=== PATIENT | male | born 1995 | race African-American/Black ===

== ENCOUNTER 2017-10-11 16:36 | Inpatient (IN) | payer MEDICAID ==
[~2017-10-11] VITALS: Ht 188 cm; Wt 89.9 kg
[~2017-10-11 16:36] MED LIST: DIVA500T35 PO; QUET300T2 PO
[2017-10-11] MEDS ORDERED: OLAN10TA3 PO (16:55)
[2017-10-11] MEDS ORDERED: PROP10TA73 PO (16:55)
[2017-10-11] MEDS ORDERED: SERT50TA12 PO (16:55)
[2017-10-11] MEDS ORDERED: HALOPERIDOL 5 MG TABLET PO ONE (17:15)
[2017-10-11] MEDS ORDERED: LORazepam 2 MG TABLET PO ONE (17:15)
[2017-10-11 17:16] LABS: BASOPHILS % (AUTO) 0.7 % (0.0-2.0); EOSINOPHILS % (AUTO) 0.7 % (1.0-6.0); HEMATOCRIT 46.4 % (41-53); HEMOGLOBIN 15.2 g/dL (13.5-17.5); LYMPHOCYTES # (AUTO) 1.8 K/uL (1.0-4.8); LYMPHOCYTES % (AUTO) 38.2 % (22.0-44.0); MEAN CORPUSCULAR HEMOGLOBIN 28.6 pg (26.0-34.0); MEAN CORPUSCULAR HGB CONC 32.7 G/dL (31.0-37.0); MEAN CORPUSCULAR VOLUME 87 fL (80-100); MONOCYTES # (AUTO) 0.4 K/uL (0.1-1.0); MONOCYTES % (AUTO) 8.7 % (2.0-9.0); NEUTROPHILS # (AUTO) 2.4 K/uL (1.8-7.7); NEUTROPHILS % (AUTO) 51.7 % (40.0-70.0); PLATELET COUNT (AUTO) 190 K/uL (150-450); RED BLOOD CELL COUNT(AUTO) 5.32 MIL/uL (4.50-5.90); RED CELL DISTRIBUTION WIDTH 13.9 % (11.5-14.5)
[2017-10-11 17:56] LABS: ANION GAP 6 mmol/L (8-16); CALCIUM, TOTAL 9.4 mg/dL (8.8-10.5); CARBON DIOXIDE 31 mmol/L (22-29); CHLORIDE 104 mmol/L (98-107); CREATININE 1.07 mg/dL (0.60-1.30); GLOMERULAR FILTR. RATE CALC > 60 mL/min (>60); GLUCOSE,RANDOM 92 mg/dL (70-110); POTASSIUM 4.5 mmol/L (3.5-5.1); SODIUM SERUM 141 mmol/L (136-145); UREA NITROGEN, BLOOD 14 mg/dL (7-18)
[2017-10-11 17:58] LABS: AMPHET/METH SCREEN,URINE NEGATIVE (NEGATIVE); BARBITURATE SCREEN, URINE NEGATIVE (NEGATIVE); BENZODIAZEPINES SCREEN,URINE NEGATIVE (NEGATIVE); CANNABINOID SCREEN,URINE NEGATIVE (NEGATIVE); COCAINE SCREEN,URINE NEGATIVE (NEGATIVE); METHADONE SCREEN, URINE NEGATIVE (NEGATIVE); OPIATE SCREEN,URINE NEGATIVE (NEGATIVE); PHENCYCLIDINE SCREEN,URINE NEGATIVE (NEGATIVE)
[2017-10-11 18:01] LABS: ALANINE AMINOTRANSFERASE 16 U/L (12-78); ALBUMIN 3.8 g/dL (3.4-5.0); ALKALINE PHOSPHATASE 72 U/L (46-116); ASPARTATE AMINOTRANSFERASE 26 U/L (15-37); BILIRUBIN,TOTAL 0.2 mg/dL (0.1-1.0); TOTAL PROTEIN, SERUM 7.9 g/dL (6.4-8.2)
[2017-10-11 21:06] LABS: APPEARANCE,URINE CLEAR (CLEAR); BILIRUBIN,URINE NEGATIVE (NEGATIVE); GLUCOSE, URINE (UA) NEGATIVE (NEGATIVE); KETONES,URINE NEGATIVE (NEGATIVE); LEUKOCYTE ESTERASE ,URINE NEGATIVE (NEGATIVE); NITRATE,URINE NEGATIVE (NEGATIVE); OCCULT BLOOD,URINE NEGATIVE (NEGATIVE); PROTEIN,URINE POS 1+ (NEGATIVE); UROBILINOGEN,URINE 0.2 mg/dL (<=1.0)
[2017-10-12 04:56] LABS: BASOPHILS % (AUTO) 0.4 % (0.0-2.0); EOSINOPHILS % (AUTO) 1.5 % (1.0-6.0); HEMATOCRIT 44.2 % (41-53); HEMOGLOBIN 14.8 g/dL (13.5-17.5); LYMPHOCYTES # (AUTO) 2.2 K/uL (1.0-4.8); LYMPHOCYTES % (AUTO) 44.9 % (22.0-44.0); MEAN CORPUSCULAR HEMOGLOBIN 29.1 pg (26.0-34.0); MEAN CORPUSCULAR HGB CONC 33.5 G/dL (31.0-37.0); MEAN CORPUSCULAR VOLUME 87 fL (80-100); MONOCYTES # (AUTO) 0.5 K/uL (0.1-1.0); MONOCYTES % (AUTO) 9.9 % (2.0-9.0); NEUTROPHILS # (AUTO) 2.2 K/uL (1.8-7.7); NEUTROPHILS % (AUTO) 43.3 % (40.0-70.0); PLATELET COUNT (AUTO) 178 K/uL (150-450); RED BLOOD CELL COUNT(AUTO) 5.07 MIL/uL (4.50-5.90); RED CELL DISTRIBUTION WIDTH 13.9 % (11.5-14.5)
[2017-10-12 05:20] LABS: ALANINE AMINOTRANSFERASE 23 U/L (12-78); ALBUMIN 3.4 g/dL (3.4-5.0); ALKALINE PHOSPHATASE 64 U/L (46-116); ANION GAP 4 mmol/L (8-16); ASPARTATE AMINOTRANSFERASE 26 U/L (15-37); BILIRUBIN,TOTAL 0.1 mg/dL (0.1-1.0); CALCIUM, TOTAL 8.7 mg/dL (8.8-10.5); CARBON DIOXIDE 32 mmol/L (22-29); CHLORIDE 103 mmol/L (98-107); CREATININE 0.97 mg/dL (0.60-1.30); FREE T4 (FREE THYROXINE) 0.75 ng/dL (0.76-1.46); GLOMERULAR FILTR. RATE CALC > 60 mL/min (>60); GLUCOSE,RANDOM 106 mg/dL (70-110); POTASSIUM 3.7 mmol/L (3.5-5.1); SODIUM SERUM 139 mmol/L (136-145); THYROID STIMULATING HORMONE 4.15 uIU/mL (0.36-3.74); TOTAL PROTEIN, SERUM 6.8 g/dL (6.4-8.2); UREA NITROGEN, BLOOD 12 mg/dL (7-18)
[2017-10-12 08:10] VITALS: BP 111/69
[2017-10-12] MEDS ORDERED: CloNIDine HCL 0.1 MG TABLET PO PRN (09:00)
[2017-10-12] MEDS ORDERED: IBUPROFEN 600 MG TABLET PO PRN (09:00)
[2017-10-12] MEDS ORDERED: MAG HYDROX/AL HYDROX/SIMETH ES 30 ML SUSPENSION UDCUP PO PRN (09:00)
[2017-10-12] MEDS ORDERED: BENZOCAINE/MENTHOL LOZENGE MM PRN (09:00)
[2017-10-12] MEDS ORDERED: ACETAMINOPHEN 325 MG TABLET PO PRN (09:00)
[2017-10-12] MEDS ORDERED: ALBUTEROL SULFATE HFA 90 MCG/PUFF 8 GM INHALER IH PRN (09:00)
[2017-10-12] MEDS ORDERED: BACITRACIN 28.4 GM OINTMENT TP PRN (09:00)
[2017-10-12] MEDS ORDERED: LOPERAMIDE HCL 2 MG CAPSULE PO PRN (09:00)
[2017-10-12] MEDS ORDERED: PETROLATUM,WHITE 71 GM JELLY TP PRN (09:00)
[2017-10-12] MEDS ORDERED: MAGNESIUM HYDROXIDE SUSPENSION 30 ML UDCUP PO PRN (09:00)
[2017-10-12] MEDS ORDERED: ONDANSETRON HCL 4 MG TABLET PO PRN (09:00)
[2017-10-12] MEDS ORDERED: BENZOCAINE/MENTHOL LOZENGE [8 LOZENGES/PACKET] MM PRN (10:47)
[2017-10-12] MEDS: PROPRANOLOL HCL 10 MG TABLET PO SCH (10:48)
[2017-10-12] MEDS: SERTRALINE HCL 50 MG TABLET PO SCH (10:48)
[2017-10-12] MEDS: OLANZapine 10 MG TABLET PO SCH (10:49)
[2017-10-12] MEDS: DIVALPROEX SODIUM 500 MG DR TABLET PO SCH (12:39)
[2017-10-12] MEDS: QUEtiapine FUMARATE 300 MG TABLET PO SCH (20:15)
[2017-10-12 20:25] VITALS: BP 134/93
[2017-10-13 05:39] VITALS: BP 128/86
[2017-10-13 07:46] LABS: CHOL/HDL RATIO 3.4 (4.2-7.3); THYROID STIMULATING HORMONE 3.85 uIU/mL (0.36-3.74)
[2017-10-13 08:37] VITALS: BP 134/85
[2017-10-13] MEDS: DIVALPROEX SODIUM 500 MG DR TABLET PO SCH ×2 (08:54→17:29)
[2017-10-13] MEDS: PROPRANOLOL HCL 10 MG TABLET PO SCH ×2 (08:54→17:29)
[2017-10-13] MEDS: SERTRALINE HCL 50 MG TABLET PO SCH (08:54)
[2017-10-13] MEDS: OLANZapine 10 MG TABLET PO SCH ×2 (08:55→17:29)
[2017-10-13 16:41] VITALS: BP 124/86
[2017-10-13] MEDS: QUEtiapine FUMARATE 300 MG TABLET PO SCH (20:36)
[2017-10-13] MEDS: HALOPERIDOL 5 MG TABLET PO PRN (20:50)
[2017-10-13] MEDS: LORazepam 2 MG TABLET PO PRN (20:50)
[2017-10-13] MEDS ORDERED: HALOPERIDOL LACTATE 5 MG/ML VIAL IM ONE (21:45)
[2017-10-13] MEDS ORDERED: LORazepam 2 MG/ML VIAL IM ONE (21:45)
[2017-10-13] MEDS ORDERED: DiphenhydrAMINE HCL 50 MG/ML VIAL IM ONE (21:45)
[2017-10-13] MEDS ORDERED: HALOPERIDOL LACTATE 5 MG/ML VIAL ONE (21:46)
[2017-10-13] MEDS ORDERED: LORazepam 2 MG/ML VIAL ONE (21:46)
[2017-10-13] MEDS ORDERED: DiphenhydrAMINE HCL 50 MG/ML VIAL ONE (21:46)
[2017-10-14] MEDS: LEVOTHYROXINE SODIUM 25 MCG TABLET PO SCH (07:06)
[2017-10-14 09:37] VITALS: BP 130/100
[2017-10-14] MEDS: PROPRANOLOL HCL 10 MG TABLET PO SCH ×2 (10:38→17:04)
[2017-10-14] MEDS: DIVALPROEX SODIUM 500 MG DR TABLET PO SCH ×2 (10:39→17:04)
[2017-10-14] MEDS: SERTRALINE HCL 50 MG TABLET PO SCH (10:39)
[2017-10-14] MEDS: OLANZapine 10 MG TABLET PO SCH ×2 (10:39→17:04)
[2017-10-14] MEDS: CHOLECALCIFEROL (VIT D3) 1,000 UNITS TABLET PO SCH (10:40)
[2017-10-14 19:18] VITALS: BP 141/89
[2017-10-14] MEDS: LORazepam 2 MG TABLET PO PRN (20:14)
[2017-10-14 20:15] VITALS: BP 128/93
[2017-10-14] MEDS: QUEtiapine FUMARATE 300 MG TABLET PO SCH (21:08)
[2017-10-15] VITALS (7 sets, daily range): BP systolic 132–155; BP diastolic 82–96
[2017-10-15] MEDS: LEVOTHYROXINE SODIUM 25 MCG TABLET PO SCH (06:33)
[2017-10-15] MEDS: DIVALPROEX SODIUM 500 MG DR TABLET PO SCH ×2 (08:05→17:01)
[2017-10-15] MEDS: PROPRANOLOL HCL 10 MG TABLET PO SCH ×2 (08:06→17:01)
[2017-10-15] MEDS: LORazepam 2 MG TABLET PO PRN ×2 (08:06→18:24)
[2017-10-15] MEDS: SERTRALINE HCL 50 MG TABLET PO SCH (08:06)
[2017-10-15] MEDS: CHOLECALCIFEROL (VIT D3) 1,000 UNITS TABLET PO SCH (08:06)
[2017-10-15] MEDS: HALOPERIDOL 5 MG TABLET PO PRN (08:06)
[2017-10-15] MEDS: OLANZapine 10 MG TABLET PO SCH ×2 (08:07→17:01)
[2017-10-15 18:23] LABS: GLUCOMETER DEV NAME(LOC) 3EC; GLUCOSE,POINT OF CARE 114 MG/DL (70-110)
[2017-10-15] MEDS: QUEtiapine FUMARATE 300 MG TABLET PO SCH (20:44)
[2017-10-16 06:42] VITALS: BP 108/67
[2017-10-16] MEDS: LEVOTHYROXINE SODIUM 25 MCG TABLET PO SCH (06:54)
[2017-10-16 08:00] VITALS: BP 141/78
[2017-10-16] MEDS: DIVALPROEX SODIUM 500 MG DR TABLET PO SCH ×2 (09:47→18:00)
[2017-10-16] MEDS: PROPRANOLOL HCL 10 MG TABLET PO SCH ×2 (09:47→17:59)
[2017-10-16] MEDS: OLANZapine 10 MG TABLET PO SCH ×2 (09:48→18:00)
[2017-10-16] MEDS: SERTRALINE HCL 50 MG TABLET PO SCH (09:48)
[2017-10-16] MEDS: CHOLECALCIFEROL (VIT D3) 1,000 UNITS TABLET PO SCH (09:48)
[2017-10-16] MEDS: LORazepam 2 MG TABLET PO PRN (12:06)
[2017-10-16] MEDS: HALOPERIDOL 5 MG TABLET PO PRN (12:06)
[2017-10-16 18:02] VITALS: BP 120/85
[2017-10-16] MEDS: QUEtiapine FUMARATE 300 MG TABLET PO SCH (20:19)
[2017-10-17] MEDS: LEVOTHYROXINE SODIUM 25 MCG TABLET PO SCH (06:48)
[2017-10-17] MEDS: LORazepam 2 MG TABLET PO PRN ×2 (08:00→16:25)
[2017-10-17] MEDS: DIVALPROEX SODIUM 500 MG DR TABLET PO SCH ×2 (08:00→16:25)
[2017-10-17] MEDS: HALOPERIDOL 5 MG TABLET PO PRN (08:00)
[2017-10-17] MEDS: CHOLECALCIFEROL (VIT D3) 1,000 UNITS TABLET PO SCH (08:00)
[2017-10-17] MEDS: SERTRALINE HCL 50 MG TABLET PO SCH (08:01)
[2017-10-17] MEDS: OLANZapine 10 MG TABLET PO SCH ×2 (08:01→16:26)
[2017-10-17] MEDS: PROPRANOLOL HCL 10 MG TABLET PO SCH ×2 (08:01→16:25)
[2017-10-17] MEDS: QUEtiapine FUMARATE 300 MG TABLET PO SCH (21:30)
[2017-10-18 06:44] VITALS: BP 110/72
[2017-10-18] MEDS: LEVOTHYROXINE SODIUM 25 MCG TABLET PO SCH (06:58)
[2017-10-18 08:00] VITALS: BP 137/97
[2017-10-18] MEDS: SERTRALINE HCL 50 MG TABLET PO SCH (08:34)
[2017-10-18] MEDS: LORazepam 2 MG TABLET PO PRN (08:34)
[2017-10-18] MEDS: CHOLECALCIFEROL (VIT D3) 1,000 UNITS TABLET PO SCH (08:34)
[2017-10-18] MEDS: PROPRANOLOL HCL 10 MG TABLET PO SCH ×2 (08:34→16:40)
[2017-10-18] MEDS: HALOPERIDOL 5 MG TABLET PO PRN (08:34)
[2017-10-18] MEDS: DIVALPROEX SODIUM 500 MG DR TABLET PO SCH ×2 (08:34→16:40)
[2017-10-18] MEDS: OLANZapine 10 MG TABLET PO SCH ×2 (08:34→16:40)
[2017-10-18 17:29] VITALS: BP 129/86
[2017-10-18] MEDS: QUEtiapine FUMARATE 300 MG TABLET PO SCH (20:43)
[2017-10-19] MEDS: LEVOTHYROXINE SODIUM 25 MCG TABLET PO SCH (07:00)
[2017-10-19 08:05] VITALS: BP 134/94
[2017-10-19] MEDS: SERTRALINE HCL 50 MG TABLET PO SCH (10:16)
[2017-10-19] MEDS: LORazepam 2 MG TABLET PO PRN (10:16)
[2017-10-19] MEDS: HALOPERIDOL 5 MG TABLET PO PRN (10:16)
[2017-10-19] MEDS: OLANZapine 10 MG TABLET PO SCH ×2 (10:16→17:15)
[2017-10-19] MEDS: PROPRANOLOL HCL 10 MG TABLET PO SCH ×2 (10:16→17:15)
[2017-10-19] MEDS: DIVALPROEX SODIUM 500 MG DR TABLET PO SCH ×2 (10:16→17:15)
[2017-10-19] MEDS: CHOLECALCIFEROL (VIT D3) 1,000 UNITS TABLET PO SCH (10:16)
[2017-10-19 16:00] VITALS: BP 126/74
[2017-10-19] MEDS: QUEtiapine FUMARATE 300 MG TABLET PO SCH (20:43)
[2017-10-20] MEDS: LEVOTHYROXINE SODIUM 25 MCG TABLET PO SCH (06:51)
[2017-10-20 08:11] VITALS: BP 136/85
[2017-10-20] MEDS: LORazepam 2 MG TABLET PO PRN (09:01)
[2017-10-20] MEDS: SERTRALINE HCL 50 MG TABLET PO SCH (09:01)
[2017-10-20] MEDS: OLANZapine 10 MG TABLET PO SCH ×2 (09:01→17:51)
[2017-10-20] MEDS: CHOLECALCIFEROL (VIT D3) 1,000 UNITS TABLET PO SCH (09:01)
[2017-10-20] MEDS: DIVALPROEX SODIUM 500 MG DR TABLET PO SCH ×2 (09:01→17:51)
[2017-10-20] MEDS: HALOPERIDOL 5 MG TABLET PO PRN (09:02)
[2017-10-20] MEDS: PROPRANOLOL HCL 10 MG TABLET PO SCH ×2 (09:02→17:51)
[2017-10-20] MEDS: QUEtiapine FUMARATE 300 MG TABLET PO SCH (20:13)
[2017-10-20 20:39] VITALS: BP 132/80
[2017-10-21] MEDS: LEVOTHYROXINE SODIUM 25 MCG TABLET PO SCH (06:57)
[2017-10-21 08:10] VITALS: BP 125/95
[2017-10-21] MEDS: PROPRANOLOL HCL 10 MG TABLET PO SCH ×2 (08:17→16:55)
[2017-10-21] MEDS: CHOLECALCIFEROL (VIT D3) 1,000 UNITS TABLET PO SCH (08:17)
[2017-10-21] MEDS: SERTRALINE HCL 50 MG TABLET PO SCH (08:17)
[2017-10-21] MEDS: DIVALPROEX SODIUM 500 MG DR TABLET PO SCH ×2 (08:17→16:56)
[2017-10-21] MEDS: OLANZapine 10 MG TABLET PO SCH ×2 (08:18→16:56)
[2017-10-21] MEDS: HALOPERIDOL 5 MG TABLET PO PRN (12:25)
[2017-10-21] MEDS: LORazepam 2 MG TABLET PO PRN (12:25)
[2017-10-21] MEDS ORDERED: NICOTINE 14 MG/24 HOUR PATCH TD ONE (15:15)
[2017-10-21] MEDS: QUEtiapine FUMARATE 300 MG TABLET PO SCH (20:24)
[2017-10-21 21:57] VITALS: BP 114/89
[2017-10-22] MEDS: LEVOTHYROXINE SODIUM 25 MCG TABLET PO SCH (06:38)
[2017-10-22 09:00] VITALS: BP 150/91
[2017-10-22] MEDS: SERTRALINE HCL 50 MG TABLET PO SCH (09:04)
[2017-10-22] MEDS: PROPRANOLOL HCL 10 MG TABLET PO SCH ×2 (09:04→16:20)
[2017-10-22] MEDS: DIVALPROEX SODIUM 500 MG DR TABLET PO SCH ×2 (09:04→16:20)
[2017-10-22] MEDS: CHOLECALCIFEROL (VIT D3) 1,000 UNITS TABLET PO SCH (09:04)
[2017-10-22] MEDS: OLANZapine 10 MG TABLET PO SCH ×2 (09:04→16:20)
[2017-10-22] MEDS: NICOTINE 21 MG/24 HOUR PATCH TD SCH (09:05)
[2017-10-22 16:00] VITALS: BP 124/76
[2017-10-22] MEDS: QUEtiapine FUMARATE 300 MG TABLET PO SCH (20:18)
[2017-10-23] MEDS: LEVOTHYROXINE SODIUM 25 MCG TABLET PO SCH (06:57)
[2017-10-23] MEDS: PROPRANOLOL HCL 10 MG TABLET PO SCH ×2 (09:10→17:19)
[2017-10-23] MEDS: DIVALPROEX SODIUM 500 MG DR TABLET PO SCH ×2 (09:11→17:19)
[2017-10-23] MEDS: CHOLECALCIFEROL (VIT D3) 1,000 UNITS TABLET PO SCH (09:11)
[2017-10-23] MEDS: SERTRALINE HCL 50 MG TABLET PO SCH (09:11)
[2017-10-23] MEDS: NICOTINE 21 MG/24 HOUR PATCH TD SCH (09:12)
[2017-10-23] MEDS: OLANZapine 10 MG TABLET PO SCH ×2 (09:14→17:19)
[2017-10-23 10:59] VITALS: BP 132/77
[2017-10-23 17:10] VITALS: BP 122/71
[2017-10-23] MEDS: QUEtiapine FUMARATE 300 MG TABLET PO SCH (20:07)
[2017-10-24] MEDS: LORazepam 2 MG TABLET PO PRN ×3 (02:31→16:49)
[2017-10-24] MEDS: ZOLPIDEM TARTRATE 10 MG TABLET PO PRN (02:31)
[2017-10-24] MEDS: LEVOTHYROXINE SODIUM 25 MCG TABLET PO SCH (07:00)
[2017-10-24 08:42] VITALS: BP 127/72
[2017-10-24] MEDS: OLANZapine 10 MG TABLET PO SCH ×2 (10:40→16:20)
[2017-10-24] MEDS: DIVALPROEX SODIUM 500 MG DR TABLET PO SCH ×2 (10:40→16:19)
[2017-10-24] MEDS: CHOLECALCIFEROL (VIT D3) 1,000 UNITS TABLET PO SCH (10:40)
[2017-10-24] MEDS: SERTRALINE HCL 50 MG TABLET PO SCH (10:40)
[2017-10-24] MEDS: PROPRANOLOL HCL 10 MG TABLET PO SCH ×2 (10:40→16:20)
[2017-10-24] MEDS: NICOTINE 21 MG/24 HOUR PATCH TD SCH (10:41)
[2017-10-24] MEDS: HALOPERIDOL 5 MG TABLET PO PRN ×2 (12:05→16:49)
[2017-10-24 16:00] VITALS: BP 150/92
[2017-10-24] MEDS: QUEtiapine FUMARATE 300 MG TABLET PO SCH (20:14)
[2017-10-25] MEDS: LEVOTHYROXINE SODIUM 25 MCG TABLET PO SCH (06:53)
[2017-10-25 08:12] VITALS: BP 132/94
[2017-10-25] MEDS: DIVALPROEX SODIUM 500 MG DR TABLET PO SCH ×2 (11:14→17:55)
[2017-10-25] MEDS: LORazepam 2 MG TABLET PO PRN ×2 (11:14→19:54)
[2017-10-25] MEDS: PROPRANOLOL HCL 10 MG TABLET PO SCH ×2 (11:14→17:55)
[2017-10-25] MEDS: OLANZapine 10 MG TABLET PO SCH ×2 (11:14→17:55)
[2017-10-25] MEDS: HALOPERIDOL 5 MG TABLET PO PRN ×2 (11:14→19:54)
[2017-10-25] MEDS: SERTRALINE HCL 50 MG TABLET PO SCH (11:14)
[2017-10-25] MEDS: NICOTINE 21 MG/24 HOUR PATCH TD SCH (11:15)
[2017-10-25] MEDS: CHOLECALCIFEROL (VIT D3) 1,000 UNITS TABLET PO SCH (11:15)
[2017-10-25 16:00] VITALS: BP 145/90
[2017-10-25] MEDS: QUEtiapine FUMARATE 300 MG TABLET PO SCH (21:28)
[2017-10-26] MEDS: LEVOTHYROXINE SODIUM 25 MCG TABLET PO SCH (06:52)
[2017-10-26 08:48] VITALS: BP 121/70
[2017-10-26] MEDS: CHOLECALCIFEROL (VIT D3) 1,000 UNITS TABLET PO SCH (09:23)
[2017-10-26] MEDS: SERTRALINE HCL 50 MG TABLET PO SCH (09:23)
[2017-10-26] MEDS: DIVALPROEX SODIUM 500 MG DR TABLET PO SCH ×2 (09:23→16:08)
[2017-10-26] MEDS: PROPRANOLOL HCL 10 MG TABLET PO SCH ×2 (09:23→16:08)
[2017-10-26] MEDS: NICOTINE 21 MG/24 HOUR PATCH TD SCH (09:24)
[2017-10-26] MEDS: OLANZapine 10 MG TABLET PO SCH ×2 (09:24→16:09)
[2017-10-26] MEDS: LORazepam 2 MG TABLET PO PRN (16:46)
[2017-10-26 16:47] VITALS: BP 141/96
[2017-10-26 16:52] VITALS: BP 125/84
[2017-10-26] MEDS: QUEtiapine FUMARATE 300 MG TABLET PO SCH (21:09)
[2017-10-27] MEDS: LEVOTHYROXINE SODIUM 25 MCG TABLET PO SCH (06:52)
[2017-10-27 08:17] VITALS: BP 117/70
[2017-10-27] MEDS: PROPRANOLOL HCL 10 MG TABLET PO SCH ×2 (08:45→16:23)
[2017-10-27] MEDS: DIVALPROEX SODIUM 500 MG DR TABLET PO SCH ×2 (08:45→16:22)
[2017-10-27] MEDS: NICOTINE 21 MG/24 HOUR PATCH TD SCH (08:46)
[2017-10-27] MEDS: SERTRALINE HCL 50 MG TABLET PO SCH (08:46)
[2017-10-27] MEDS: CHOLECALCIFEROL (VIT D3) 1,000 UNITS TABLET PO SCH (08:46)
[2017-10-27] MEDS: OLANZapine 10 MG TABLET PO SCH ×2 (08:46→16:23)
[2017-10-27 16:20] VITALS: BP 136/86
[2017-10-27] MEDS: QUEtiapine FUMARATE 300 MG TABLET PO SCH (20:38)
[2017-10-28 03:54] VITALS: BP 141/80
[2017-10-28] MEDS: LEVOTHYROXINE SODIUM 25 MCG TABLET PO SCH (07:05)
[2017-10-28 08:22] VITALS: BP 111/78
[2017-10-28] MEDS: PROPRANOLOL HCL 10 MG TABLET PO SCH ×2 (08:29→16:31)
[2017-10-28] MEDS: DIVALPROEX SODIUM 500 MG DR TABLET PO SCH ×2 (08:29→16:31)
[2017-10-28] MEDS: SERTRALINE HCL 50 MG TABLET PO SCH (08:29)
[2017-10-28] MEDS: CHOLECALCIFEROL (VIT D3) 1,000 UNITS TABLET PO SCH (08:30)
[2017-10-28] MEDS: OLANZapine 10 MG TABLET PO SCH ×2 (08:30→16:31)
[2017-10-28] MEDS: NICOTINE 21 MG/24 HOUR PATCH TD SCH (08:32)
[2017-10-28] MEDS: LORazepam 2 MG TABLET PO PRN ×2 (10:56→18:25)
[2017-10-28] MEDS: HALOPERIDOL 5 MG TABLET PO PRN ×2 (10:57→18:26)
[2017-10-28 16:33] VITALS: BP 147/84
[2017-10-28] MEDS: QUEtiapine FUMARATE 300 MG TABLET PO SCH (20:10)
[2017-10-29] MEDS: LEVOTHYROXINE SODIUM 25 MCG TABLET PO SCH (06:53)
[2017-10-29 08:22] VITALS: BP 126/82
[2017-10-29] MEDS: CHOLECALCIFEROL (VIT D3) 1,000 UNITS TABLET PO SCH (09:10)
[2017-10-29] MEDS: PROPRANOLOL HCL 10 MG TABLET PO SCH ×2 (09:10→16:46)
[2017-10-29] MEDS: SERTRALINE HCL 50 MG TABLET PO SCH (09:10)
[2017-10-29] MEDS: DIVALPROEX SODIUM 500 MG DR TABLET PO SCH ×2 (09:10→16:46)
[2017-10-29] MEDS: OLANZapine 10 MG TABLET PO SCH ×2 (09:10→16:46)
[2017-10-29] MEDS: NICOTINE 21 MG/24 HOUR PATCH TD SCH (09:14)
[2017-10-29 16:00] VITALS: BP 147/97
[2017-10-29] MEDS: QUEtiapine FUMARATE 300 MG TABLET PO SCH ×2 (19:54→20:00)
[2017-10-30] MEDS: LEVOTHYROXINE SODIUM 25 MCG TABLET PO SCH (06:53)
[2017-10-30 08:15] VITALS: BP 128/71
[2017-10-30] MEDS: CHOLECALCIFEROL (VIT D3) 1,000 UNITS TABLET PO SCH (08:25)
[2017-10-30] MEDS: OLANZapine 10 MG TABLET PO SCH ×2 (08:25→16:12)
[2017-10-30] MEDS: PROPRANOLOL HCL 10 MG TABLET PO SCH ×2 (08:25→16:12)
[2017-10-30] MEDS: DIVALPROEX SODIUM 500 MG DR TABLET PO SCH ×2 (08:25→16:12)
[2017-10-30] MEDS: SERTRALINE HCL 50 MG TABLET PO SCH (08:25)
[2017-10-30] MEDS: NICOTINE 21 MG/24 HOUR PATCH TD SCH (09:13)
[2017-10-30 19:12] VITALS: BP 146/87
[2017-10-30] MEDS ORDERED: LORazepam 2 MG/ML VIAL ONE (20:12)
[2017-10-30] MEDS ORDERED: LORazepam 2 MG/ML VIAL IM ONE (20:15)
[2017-10-30 20:17] LABS: GLUCOMETER DEV NAME(LOC) 3EC; GLUCOSE,POINT OF CARE 104 MG/DL (70-110)
[2017-10-30] MEDS: QUEtiapine FUMARATE 300 MG TABLET PO SCH (22:17)
[2017-10-31] MEDS: LEVOTHYROXINE SODIUM 25 MCG TABLET PO SCH (06:52)
[2017-10-31 08:54] VITALS: BP 116/67
[2017-10-31] MEDS: PROPRANOLOL HCL 10 MG TABLET PO SCH ×2 (09:05→16:42)
[2017-10-31] MEDS: DIVALPROEX SODIUM 500 MG DR TABLET PO SCH ×2 (09:05→16:42)
[2017-10-31] MEDS: CHOLECALCIFEROL (VIT D3) 1,000 UNITS TABLET PO SCH (09:05)
[2017-10-31] MEDS: SERTRALINE HCL 50 MG TABLET PO SCH (09:05)
[2017-10-31] MEDS: NICOTINE 21 MG/24 HOUR PATCH TD SCH (09:07)
[2017-10-31] MEDS: OLANZapine 10 MG TABLET PO SCH ×2 (09:07→16:42)
[2017-10-31 16:39] VITALS: BP_SYST 105; BP_SYST 132; BP_DIAS 65; BP_DIAS 92
[2017-10-31] MEDS: QUEtiapine FUMARATE 300 MG TABLET PO SCH (20:27)
[2017-11-01 00:50] VITALS: BP 140/88
[2017-11-01] MEDS: LEVOTHYROXINE SODIUM 25 MCG TABLET PO SCH (06:55)
[2017-11-01 08:23] VITALS: BP 127/83
[2017-11-01] MEDS: PROPRANOLOL HCL 10 MG TABLET PO SCH ×2 (08:25→17:24)
[2017-11-01] MEDS: CHOLECALCIFEROL (VIT D3) 1,000 UNITS TABLET PO SCH (08:25)
[2017-11-01] MEDS: DIVALPROEX SODIUM 500 MG DR TABLET PO SCH ×2 (08:25→17:24)
[2017-11-01] MEDS: SERTRALINE HCL 50 MG TABLET PO SCH (08:26)
[2017-11-01] MEDS: OLANZapine 10 MG TABLET PO SCH ×2 (08:28→17:24)
[2017-11-01] MEDS: NICOTINE 21 MG/24 HOUR PATCH TD SCH (09:54)
[2017-11-01] MEDS: HALOPERIDOL 5 MG TABLET PO PRN (12:08)
[2017-11-01] MEDS: LORazepam 2 MG TABLET PO PRN (12:08)
[2017-11-01 16:49] VITALS: BP 141/89
[2017-11-01] MEDS: QUEtiapine FUMARATE 300 MG TABLET PO SCH (20:06)
[2017-11-02] MEDS: LEVOTHYROXINE SODIUM 25 MCG TABLET PO SCH (06:54)
[2017-11-02] MEDS: PROPRANOLOL HCL 10 MG TABLET PO SCH ×2 (08:56→16:37)
[2017-11-02] MEDS: CHOLECALCIFEROL (VIT D3) 1,000 UNITS TABLET PO SCH (08:56)
[2017-11-02] MEDS: SERTRALINE HCL 50 MG TABLET PO SCH (08:56)
[2017-11-02] MEDS: DIVALPROEX SODIUM 500 MG DR TABLET PO SCH ×2 (08:57→16:37)
[2017-11-02] MEDS: OLANZapine 10 MG TABLET PO SCH ×2 (08:57→16:37)
[2017-11-02] MEDS: NICOTINE 21 MG/24 HOUR PATCH TD SCH (08:58)
[2017-11-02 10:15] VITALS: BP 112/85
[2017-11-02 18:46] VITALS: BP 120/77
[2017-11-02] MEDS: QUEtiapine FUMARATE 300 MG TABLET PO SCH (20:35)
[2017-11-02] MEDS: ZOLPIDEM TARTRATE 10 MG TABLET PO PRN (21:57)
[2017-11-03] MEDS: LEVOTHYROXINE SODIUM 25 MCG TABLET PO SCH (06:50)
[2017-11-03 08:26] VITALS: BP 125/78
[2017-11-03] MEDS: OLANZapine 10 MG TABLET PO SCH ×2 (08:36→17:55)
[2017-11-03] MEDS: PROPRANOLOL HCL 10 MG TABLET PO SCH ×2 (08:36→17:55)
[2017-11-03] MEDS: NICOTINE 21 MG/24 HOUR PATCH TD SCH (08:36)
[2017-11-03] MEDS: CHOLECALCIFEROL (VIT D3) 1,000 UNITS TABLET PO SCH (08:36)
[2017-11-03] MEDS: DIVALPROEX SODIUM 500 MG DR TABLET PO SCH ×2 (08:36→17:55)
[2017-11-03] MEDS: SERTRALINE HCL 50 MG TABLET PO SCH (08:36)
[2017-11-03] MEDS: HALOPERIDOL 5 MG TABLET PO PRN (15:54)
[2017-11-03] MEDS: LORazepam 2 MG TABLET PO PRN (15:54)
[2017-11-03 16:30] VITALS: BP 135/79
[2017-11-03] MEDS: QUEtiapine FUMARATE 300 MG TABLET PO SCH (21:33)
[2017-11-04] MEDS: LEVOTHYROXINE SODIUM 25 MCG TABLET PO SCH (06:45)
[2017-11-04] MEDS: DIVALPROEX SODIUM 500 MG DR TABLET PO SCH ×2 (08:20→16:17)
[2017-11-04] MEDS: CHOLECALCIFEROL (VIT D3) 1,000 UNITS TABLET PO SCH (08:20)
[2017-11-04] MEDS: PROPRANOLOL HCL 10 MG TABLET PO SCH ×2 (08:22→16:17)
[2017-11-04] MEDS: QUEtiapine FUMARATE 200 MG TABLET PO SCH (08:22)
[2017-11-04] MEDS: OLANZapine 10 MG TABLET PO SCH ×2 (08:24→16:17)
[2017-11-04] MEDS: SERTRALINE HCL 50 MG TABLET PO SCH (08:24)
[2017-11-04 08:26] VITALS: BP 126/87
[2017-11-04] MEDS: NICOTINE 21 MG/24 HOUR PATCH TD SCH (08:28)
[2017-11-04 16:00] VITALS: BP 130/69
[2017-11-04] MEDS: LORazepam 2 MG TABLET PO PRN (16:17)
[2017-11-04] MEDS: HALOPERIDOL 5 MG TABLET PO PRN (16:17)
[2017-11-04] MEDS: QUEtiapine FUMARATE 300 MG TABLET PO SCH (20:28)
[2017-11-05] MEDS: LEVOTHYROXINE SODIUM 25 MCG TABLET PO SCH (06:28)
[2017-11-05 08:31] VITALS: BP 133/91
[2017-11-05] MEDS: OLANZapine 10 MG TABLET PO SCH ×2 (08:46→16:32)
[2017-11-05] MEDS: CHOLECALCIFEROL (VIT D3) 1,000 UNITS TABLET PO SCH (08:46)
[2017-11-05] MEDS: SERTRALINE HCL 50 MG TABLET PO SCH (08:47)
[2017-11-05] MEDS: QUEtiapine FUMARATE 200 MG TABLET PO SCH (08:47)
[2017-11-05] MEDS: DIVALPROEX SODIUM 500 MG DR TABLET PO SCH ×2 (08:47→16:32)
[2017-11-05] MEDS: PROPRANOLOL HCL 10 MG TABLET PO SCH ×2 (08:47→16:32)
[2017-11-05] MEDS: NICOTINE 21 MG/24 HOUR PATCH TD SCH (08:48)
[2017-11-05] MEDS: LORazepam 2 MG TABLET PO PRN (16:36)
[2017-11-05 19:47] VITALS: BP 118/74
[2017-11-05] MEDS: QUEtiapine FUMARATE 300 MG TABLET PO SCH (21:35)
[2017-11-06] MEDS: LEVOTHYROXINE SODIUM 25 MCG TABLET PO SCH (06:47)
[2017-11-06 08:30] VITALS: BP 138/97
[2017-11-06] MEDS: PROPRANOLOL HCL 10 MG TABLET PO SCH ×2 (09:07→17:23)
[2017-11-06] MEDS: CHOLECALCIFEROL (VIT D3) 1,000 UNITS TABLET PO SCH (09:07)
[2017-11-06] MEDS: DIVALPROEX SODIUM 500 MG DR TABLET PO SCH ×2 (09:07→17:23)
[2017-11-06] MEDS: QUEtiapine FUMARATE 200 MG TABLET PO SCH (09:07)
[2017-11-06] MEDS: OLANZapine 10 MG TABLET PO SCH ×2 (09:07→17:23)
[2017-11-06] MEDS: SERTRALINE HCL 50 MG TABLET PO SCH (09:07)
[2017-11-06] MEDS: NICOTINE 21 MG/24 HOUR PATCH TD SCH (09:11)
[2017-11-06 20:16] VITALS: BP 126/79
[2017-11-06] MEDS: QUEtiapine FUMARATE 300 MG TABLET PO SCH (20:46)
[2017-11-07] MEDS: LEVOTHYROXINE SODIUM 25 MCG TABLET PO SCH (06:32)
[2017-11-07] MEDS: PROPRANOLOL HCL 10 MG TABLET PO SCH ×2 (08:22→16:52)
[2017-11-07] MEDS: SERTRALINE HCL 50 MG TABLET PO SCH (08:22)
[2017-11-07] MEDS: DIVALPROEX SODIUM 500 MG DR TABLET PO SCH ×2 (08:22→16:52)
[2017-11-07] MEDS: OLANZapine 10 MG TABLET PO SCH ×2 (08:22→16:52)
[2017-11-07] MEDS: CHOLECALCIFEROL (VIT D3) 1,000 UNITS TABLET PO SCH (08:22)
[2017-11-07] MEDS: QUEtiapine FUMARATE 200 MG TABLET PO SCH (08:22)
[2017-11-07] MEDS: NICOTINE 21 MG/24 HOUR PATCH TD SCH (08:23)
[2017-11-07] MEDS: HALOPERIDOL 5 MG TABLET PO PRN (09:24)
[2017-11-07] MEDS: LORazepam 2 MG TABLET PO PRN (09:24)
[2017-11-07 09:57] VITALS: BP 149/89
[2017-11-07 16:47] VITALS: BP 114/69
[2017-11-07] MEDS: QUEtiapine FUMARATE 300 MG TABLET PO SCH (20:32)
[2017-11-08] MEDS: LEVOTHYROXINE SODIUM 25 MCG TABLET PO SCH (06:36)
[2017-11-08] MEDS: CHOLECALCIFEROL (VIT D3) 1,000 UNITS TABLET PO SCH (08:14)
[2017-11-08] MEDS: SERTRALINE HCL 50 MG TABLET PO SCH (08:14)
[2017-11-08] MEDS: OLANZapine 10 MG TABLET PO SCH ×2 (08:14→16:21)
[2017-11-08] MEDS: DIVALPROEX SODIUM 500 MG DR TABLET PO SCH ×2 (08:14→16:21)
[2017-11-08] MEDS: PROPRANOLOL HCL 10 MG TABLET PO SCH ×2 (08:15→16:21)
[2017-11-08] MEDS: QUEtiapine FUMARATE 200 MG TABLET PO SCH (08:15)
[2017-11-08 08:19] VITALS: BP 143/94
[2017-11-08] MEDS: NICOTINE 21 MG/24 HOUR PATCH TD SCH (08:19)
[2017-11-08] MEDS: LORazepam 2 MG TABLET PO PRN (16:21)
[2017-11-08 19:07] VITALS: BP 122/95
[2017-11-08] MEDS: QUEtiapine FUMARATE 300 MG TABLET PO SCH (20:20)
[2017-11-08] MEDS: ZOLPIDEM TARTRATE 10 MG TABLET PO PRN (21:13)
[2017-11-09] MEDS: LEVOTHYROXINE SODIUM 25 MCG TABLET PO SCH (06:35)
[2017-11-09 08:06] VITALS: BP 110/70
[2017-11-09] MEDS: SERTRALINE HCL 50 MG TABLET PO SCH (08:15)
[2017-11-09] MEDS: DIVALPROEX SODIUM 500 MG DR TABLET PO SCH ×2 (08:15→16:32)
[2017-11-09] MEDS: PROPRANOLOL HCL 10 MG TABLET PO SCH ×2 (08:15→16:32)
[2017-11-09] MEDS: OLANZapine 10 MG TABLET PO SCH ×2 (08:15→16:32)
[2017-11-09] MEDS: CHOLECALCIFEROL (VIT D3) 1,000 UNITS TABLET PO SCH (08:15)
[2017-11-09] MEDS: QUEtiapine FUMARATE 200 MG TABLET PO SCH (08:16)
[2017-11-09] MEDS: NICOTINE 21 MG/24 HOUR PATCH TD SCH (08:21)
[2017-11-09 17:30] VITALS: BP 120/76
[2017-11-09] MEDS: QUEtiapine FUMARATE 300 MG TABLET PO SCH (20:47)
[2017-11-10] MEDS: LEVOTHYROXINE SODIUM 25 MCG TABLET PO SCH (06:46)
[2017-11-10] MEDS: PROPRANOLOL HCL 10 MG TABLET PO SCH ×2 (08:41→16:26)
[2017-11-10] MEDS: CHOLECALCIFEROL (VIT D3) 1,000 UNITS TABLET PO SCH (08:41)
[2017-11-10] MEDS: QUEtiapine FUMARATE 200 MG TABLET PO SCH (08:41)
[2017-11-10] MEDS: DIVALPROEX SODIUM 500 MG DR TABLET PO SCH ×2 (08:41→16:26)
[2017-11-10] MEDS: SERTRALINE HCL 50 MG TABLET PO SCH (08:41)
[2017-11-10] MEDS: OLANZapine 10 MG TABLET PO SCH ×2 (08:42→16:26)
[2017-11-10] MEDS: NICOTINE 21 MG/24 HOUR PATCH TD SCH (08:46)
[2017-11-10] MEDS: LORazepam 2 MG TABLET PO PRN (09:20)
[2017-11-10] MEDS: HALOPERIDOL 5 MG TABLET PO PRN (09:20)
[2017-11-10 09:28] VITALS: BP 131/76
[2017-11-10 16:24] VITALS: BP 131/72
[2017-11-10] MEDS: QUEtiapine FUMARATE 300 MG TABLET PO SCH (20:22)
[2017-11-11] MEDS: LEVOTHYROXINE SODIUM 25 MCG TABLET PO SCH (07:02)
[2017-11-11 08:27] VITALS: BP 124/68
[2017-11-11] MEDS: PROPRANOLOL HCL 10 MG TABLET PO SCH ×2 (09:47→16:17)
[2017-11-11] MEDS: CHOLECALCIFEROL (VIT D3) 1,000 UNITS TABLET PO SCH (09:47)
[2017-11-11] MEDS: QUEtiapine FUMARATE 200 MG TABLET PO SCH (09:47)
[2017-11-11] MEDS: DIVALPROEX SODIUM 500 MG DR TABLET PO SCH ×2 (09:47→16:17)
[2017-11-11] MEDS: LORazepam 2 MG TABLET PO PRN ×2 (09:47→15:53)
[2017-11-11] MEDS: NICOTINE 21 MG/24 HOUR PATCH TD SCH (09:47)
[2017-11-11] MEDS: OLANZapine 10 MG TABLET PO SCH ×2 (09:47→16:17)
[2017-11-11] MEDS: SERTRALINE HCL 50 MG TABLET PO SCH (09:47)
[2017-11-11] MEDS: HALOPERIDOL 5 MG TABLET PO PRN (09:47)
[2017-11-11 16:18] VITALS: BP 135/92
[2017-11-11] MEDS: QUEtiapine FUMARATE 300 MG TABLET PO SCH (21:20)
[2017-11-12] MEDS: LEVOTHYROXINE SODIUM 25 MCG TABLET PO SCH (06:38)
[2017-11-12] MEDS: SERTRALINE HCL 50 MG TABLET PO SCH (08:11)
[2017-11-12] MEDS: DIVALPROEX SODIUM 500 MG DR TABLET PO SCH ×2 (08:11→16:24)
[2017-11-12] MEDS: LORazepam 2 MG TABLET PO PRN ×2 (08:11→15:49)
[2017-11-12] MEDS: HALOPERIDOL 5 MG TABLET PO PRN (08:11)
[2017-11-12] MEDS: OLANZapine 10 MG TABLET PO SCH ×2 (08:11→16:24)
[2017-11-12] MEDS: PROPRANOLOL HCL 10 MG TABLET PO SCH ×2 (08:11→16:26)
[2017-11-12] MEDS: QUEtiapine FUMARATE 200 MG TABLET PO SCH (08:11)
[2017-11-12] MEDS: NICOTINE 21 MG/24 HOUR PATCH TD SCH (08:11)
[2017-11-12] MEDS: CHOLECALCIFEROL (VIT D3) 1,000 UNITS TABLET PO SCH (08:12)
[2017-11-12 08:17] VITALS: BP 138/86
[2017-11-12] MEDS ORDERED: LORazepam 2 MG/ML VIAL ONE (08:44)
[2017-11-12] MEDS ORDERED: LORazepam 2 MG/ML VIAL IM ONE (08:45)
[2017-11-12 08:52] LABS: GLUCOMETER DEV NAME(LOC) 3EC; GLUCOSE,POINT OF CARE 111 MG/DL (70-110)
[2017-11-12] MEDS ORDERED: QUET200T PO (13:05)
[2017-11-12] MEDS ORDERED: LORA2TAB2 PO (13:06)
[2017-11-12] MEDS ORDERED: HALO5 PO (13:06)
[2017-11-12] MEDS ORDERED: ZOLP10TA7 PO (13:06)
[2017-11-12] MEDS ORDERED: NICO-704 TD (13:10)
[2017-11-12] MEDS ORDERED: PROP10TA73 PO (13:10)
[2017-11-12] MEDS ORDERED: VITAD1000 PO (13:10)
[2017-11-12] MEDS ORDERED: LEVO25TA9 PO (13:10)
[2017-11-12] MEDS ORDERED: ACET-784 PO (13:18)
[2017-11-12] MEDS ORDERED: ONDA4 PO (13:18)
[2017-11-12] MEDS ORDERED: PETR5OIN3 TD (13:18)
[2017-11-12] MEDS ORDERED: LOPE2 PO (13:18)
[2017-11-12] MEDS ORDERED: MOM30 PO (13:18)
[2017-11-12] MEDS ORDERED: IBUP-2070 PO (13:18)
[2017-11-12] MEDS ORDERED: BENZ1LOZ68 PO (13:18)
[2017-11-12] MEDS ORDERED: MAAES30 PO (13:18)
[2017-11-12] MEDS ORDERED: CLON-570 PO (13:18)
== END 2017-11-12 17:00 | disposition short-term general hospital (02) | DRG 750 ==
LOC: EMS 16:37 → AHU 21:50 → 3EI 10-12 18:45 → 3EC 10-13 22:00
PROVIDERS: ADMIT Psychiatry & Neurology Child & Adolescent Psychiatry; ATTEND Psychiatry & Neurology Child & Adolescent Psychiatry
DX: F20.0 Paranoid schizophrenia (principal); F79 Unspecified intellectual disabilities; E55.9 Vitamin D deficiency, unspecified; F84.0 Autistic disorder; E03.9 Hypothyroidism, unspecified; I34.0 Nonrheumatic mitral (valve) insufficiency; F41.9 Anxiety disorder, unspecified; F17.200 Nicotine dependence, unspecified, uncomplicated; G40.909 Epilepsy, unspecified, not intractable, without status epilepticus; G47.00 Insomnia, unspecified; Z91.19 Patient's noncompliance with other medical treatment and regimen; Z79.899 Other long term (current) drug therapy
CPT/HCPCS: 70450; 72125; 82306; 82962; 84439; 84443; 87081; 95816; 99285; G0480; J1200; J1630; J2060

== ENCOUNTER 2017-12-01 14:54 | Inpatient (IN) | payer MEDICAID ==
[~2017-12-01] VITALS: Ht 185.4 cm; Wt 94.5 kg
[~2017-12-01 14:54] MED LIST changes: +ACET-784 PO; +BENZ1LOZ68 PO; +CLON-570 PO; +HALO5 PO; +IBUP-2070 PO; +LEVO25TA9 PO; +LOPE2 PO; +LORA2TAB2 PO; +MAAES30 PO; +MOM30 PO; +NICO-704 TD; +OLAN10TA3 PO; +ONDA4 PO; +PETR5OIN3 TD; +PROP10TA73 PO; +QUET200T PO; +SERT50TA12 PO; +VITAD1000 PO; +ZOLP10TA7 PO
[2017-12-01] MEDS ORDERED: LORazepam 2 MG TABLET PO PRN (15:45)
[2017-12-01] MEDS ORDERED: HALOPERIDOL 5 MG TABLET PO PRN (15:45)
[2017-12-01 15:48] VITALS: BP 141/82
[2017-12-01] MEDS ORDERED: LORazepam 2 MG/ML VIAL IVP PRN (16:15)
[2017-12-01] MEDS ORDERED: ALBUTEROL SULFATE 2.5 MG/0.5 ML NEB SOLUTION NEB PRN (16:15)
[2017-12-01] MEDS ORDERED: ONDANSETRON HCL 4 MG/2 ML VIAL IVP PRN (16:15)
[2017-12-01] MEDS ORDERED: HYDROCODONE/ACETAMINOPHEN 5-325 MG TABLET PO PRN (16:15)
[2017-12-01] MEDS ORDERED: IPRATROPIUM BROMIDE 0.5 MG/2.5 ML NEB SOLUTION NEB PRN (16:15)
[2017-12-01 19:30] VITALS: BP 138/78
[2017-12-01] MEDS: QUEtiapine FUMARATE 300 MG TABLET PO SCH (19:59)
[2017-12-01] MEDS: PROPRANOLOL HCL 10 MG TABLET PO SCH (19:59)
[2017-12-01] MEDS: DIVALPROEX SODIUM 500 MG DR TABLET PO SCH (19:59)
[2017-12-01] MEDS: OLANZapine 10 MG TABLET PO SCH (20:00)
[2017-12-01] MEDS: ZOLPIDEM TARTRATE 10 MG TABLET PO PRN (22:04)
[2017-12-01 23:30] VITALS: BP 132/76
[2017-12-02 03:30] VITALS: BP 130/76
[2017-12-02 05:54] LABS: BASOPHILS % (AUTO) 0.4 % (0.0-2.0); EOSINOPHILS % (AUTO) 1.6 % (1.0-6.0); HEMATOCRIT 44.9 % (41-53); HEMOGLOBIN 15.1 g/dL (13.5-17.5); LYMPHOCYTES # (AUTO) 2.3 K/uL (1.0-4.8); LYMPHOCYTES % (AUTO) 39.9 % (22.0-44.0); MEAN CORPUSCULAR HEMOGLOBIN 29.1 pg (26.0-34.0); MEAN CORPUSCULAR HGB CONC 33.6 G/dL (31.0-37.0); MEAN CORPUSCULAR VOLUME 87 fL (80-100); MONOCYTES # (AUTO) 0.7 K/uL (0.1-1.0); MONOCYTES % (AUTO) 11.8 % (2.0-9.0); NEUTROPHILS # (AUTO) 2.7 K/uL (1.8-7.7); NEUTROPHILS % (AUTO) 46.3 % (40.0-70.0); PLATELET COUNT (AUTO) 175 K/uL (150-450); RED BLOOD CELL COUNT(AUTO) 5.17 MIL/uL (4.50-5.90); RED CELL DISTRIBUTION WIDTH 13.7 % (11.5-14.5)
[2017-12-02] MEDS: LEVOTHYROXINE SODIUM 25 MCG TABLET PO SCH (06:30)
[2017-12-02 06:41] LABS: ALANINE AMINOTRANSFERASE 17 U/L (12-78); ALBUMIN 3.2 g/dL (3.4-5.0); ALKALINE PHOSPHATASE 61 U/L (46-116); ANION GAP 4 mmol/L (8-16); ASPARTATE AMINOTRANSFERASE 19 U/L (15-37); BILIRUBIN,TOTAL 0.2 mg/dL (0.1-1.0); CARBON DIOXIDE 31 mmol/L (22-29); CHLORIDE 102 mmol/L (98-107); CREATINE KINASE, TOTAL 256 U/L (39-308); CREATININE 0.97 mg/dL (0.60-1.30); GLOMERULAR FILTR. RATE CALC > 60 mL/min (>60); GLUCOSE,RANDOM 109 mg/dL (70-110); PHOSPHORUS 4.9 mg/dL (2.5-4.9); POTASSIUM 4.1 mmol/L (3.5-5.1); SODIUM SERUM 137 mmol/L (136-145); TOTAL PROTEIN, SERUM 6.9 g/dL (6.4-8.2); UREA NITROGEN, BLOOD 11 mg/dL (7-18)
[2017-12-02 06:59] LABS: VALPROIC ACID 72 mcg/mL (50-100)
[2017-12-02 08:07] VITALS: BP 136/68
[2017-12-02] MEDS: OLANZapine 10 MG TABLET PO SCH ×2 (08:52→19:57)
[2017-12-02] MEDS: QUEtiapine FUMARATE 200 MG TABLET PO SCH (08:54)
[2017-12-02] MEDS: DIVALPROEX SODIUM 500 MG DR TABLET PO SCH ×2 (08:54→19:57)
[2017-12-02] MEDS: PROPRANOLOL HCL 10 MG TABLET PO SCH ×2 (08:54→19:57)
[2017-12-02] MEDS: SERTRALINE HCL 50 MG TABLET PO SCH (08:55)
[2017-12-02] MEDS: CHOLECALCIFEROL (VIT D3) 1,000 UNITS TABLET PO SCH (08:55)
[2017-12-02] MEDS: NICOTINE 21 MG/24 HOUR PATCH TD SCH (08:56)
[2017-12-02] MEDS: QUEtiapine FUMARATE 300 MG TABLET PO SCH (19:57)
[2017-12-02 20:07] VITALS: BP 129/82
[2017-12-02] MEDS: ZOLPIDEM TARTRATE 10 MG TABLET PO PRN (21:24)
[2017-12-02 23:13] VITALS: BP 153/89
[2017-12-03 05:08] VITALS: BP 117/65
[2017-12-03] MEDS: LEVOTHYROXINE SODIUM 25 MCG TABLET PO SCH (06:52)
[2017-12-03 07:41] VITALS: BP 128/75
[2017-12-03] MEDS: OLANZapine 10 MG TABLET PO SCH ×2 (08:39→20:02)
[2017-12-03] MEDS: QUEtiapine FUMARATE 200 MG TABLET PO SCH (08:39)
[2017-12-03] MEDS: CHOLECALCIFEROL (VIT D3) 1,000 UNITS TABLET PO SCH (08:39)
[2017-12-03] MEDS: PROPRANOLOL HCL 10 MG TABLET PO SCH ×2 (08:39→20:03)
[2017-12-03] MEDS: DIVALPROEX SODIUM 250 MG DR TABLET PO SCH ×2 (08:39→20:03)
[2017-12-03] MEDS: SERTRALINE HCL 50 MG TABLET PO SCH (08:40)
[2017-12-03] MEDS: NICOTINE 21 MG/24 HOUR PATCH TD SCH (08:40)
[2017-12-03 11:25] VITALS: BP 125/76
[2017-12-03 15:15] VITALS: BP 129/72
[2017-12-03 20:00] VITALS: BP 139/84
[2017-12-03] MEDS: QUEtiapine FUMARATE 300 MG TABLET PO SCH (20:02)
[2017-12-04] VITALS (7 sets, daily range): BP systolic 103–137; BP diastolic 59–85
[2017-12-04] MEDS: LEVOTHYROXINE SODIUM 25 MCG TABLET PO SCH (06:12)
[2017-12-04] MEDS: QUEtiapine FUMARATE 200 MG TABLET PO SCH (08:28)
[2017-12-04] MEDS: CHOLECALCIFEROL (VIT D3) 1,000 UNITS TABLET PO SCH (08:28)
[2017-12-04] MEDS: OLANZapine 10 MG TABLET PO SCH ×2 (08:28→20:27)
[2017-12-04] MEDS: SERTRALINE HCL 50 MG TABLET PO SCH (08:28)
[2017-12-04] MEDS: PROPRANOLOL HCL 10 MG TABLET PO SCH ×2 (08:28→20:27)
[2017-12-04] MEDS: DIVALPROEX SODIUM 250 MG DR TABLET PO SCH ×2 (08:28→20:27)
[2017-12-04] MEDS: MAGNESIUM OXIDE 400 MG TABLET PO SCH ×2 (08:28→20:27)
[2017-12-04] MEDS: NICOTINE 21 MG/24 HOUR PATCH TD SCH (08:29)
[2017-12-04] MEDS: ACETAMINOPHEN 325 MG TABLET PO PRN (14:49)
[2017-12-04] MEDS: QUEtiapine FUMARATE 300 MG TABLET PO SCH (20:27)
[2017-12-05 05:00] VITALS: BP 108/59
[2017-12-05] MEDS: LEVOTHYROXINE SODIUM 25 MCG TABLET PO SCH (05:38)
[2017-12-05 07:30] VITALS: BP 125/70
[2017-12-05] MEDS: DIVALPROEX SODIUM 250 MG DR TABLET PO SCH ×2 (08:41→19:35)
[2017-12-05] MEDS: CHOLECALCIFEROL (VIT D3) 1,000 UNITS TABLET PO SCH (08:42)
[2017-12-05] MEDS: SERTRALINE HCL 50 MG TABLET PO SCH (08:42)
[2017-12-05] MEDS: MAGNESIUM OXIDE 400 MG TABLET PO SCH ×2 (08:42→19:36)
[2017-12-05] MEDS: QUEtiapine FUMARATE 200 MG TABLET PO SCH (08:42)
[2017-12-05] MEDS: PROPRANOLOL HCL 10 MG TABLET PO SCH ×2 (08:42→19:36)
[2017-12-05] MEDS: NICOTINE 21 MG/24 HOUR PATCH TD SCH ×2 (08:43→08:47)
[2017-12-05] MEDS: OLANZapine 10 MG TABLET PO SCH ×2 (08:43→19:36)
[2017-12-05 11:05] VITALS: BP 124/74
[2017-12-05 16:11] VITALS: BP 132/80
[2017-12-05] MEDS: QUEtiapine FUMARATE 300 MG TABLET PO SCH (19:36)
[2017-12-05 20:00] VITALS: BP 127/86
[2017-12-06 00:30] VITALS: BP 128/82
[2017-12-06 05:08] VITALS: BP 117/75
[2017-12-06 05:56] LABS: MAGNESIUM 1.9 mg/dL (1.80-2.40)
[2017-12-06] MEDS: LEVOTHYROXINE SODIUM 25 MCG TABLET PO SCH (06:25)
[2017-12-06] MEDS: MAGNESIUM OXIDE 400 MG TABLET PO SCH ×2 (08:14→20:29)
[2017-12-06] MEDS: DIVALPROEX SODIUM 250 MG DR TABLET PO SCH ×2 (08:15→20:30)
[2017-12-06] MEDS: NICOTINE 21 MG/24 HOUR PATCH TD SCH (08:15)
[2017-12-06] MEDS: OLANZapine 10 MG TABLET PO SCH ×2 (08:15→20:29)
[2017-12-06] MEDS: CHOLECALCIFEROL (VIT D3) 1,000 UNITS TABLET PO SCH (08:15)
[2017-12-06] MEDS: QUEtiapine FUMARATE 200 MG TABLET PO SCH (08:15)
[2017-12-06] MEDS: SERTRALINE HCL 50 MG TABLET PO SCH (08:15)
[2017-12-06] MEDS: PROPRANOLOL HCL 10 MG TABLET PO SCH ×2 (08:15→20:29)
[2017-12-06 09:21] VITALS: BP 137/75
[2017-12-06 11:45] VITALS: BP 124/76
[2017-12-06 15:05] VITALS: BP 124/83
[2017-12-06 20:05] VITALS: BP 129/85
[2017-12-06] MEDS: QUEtiapine FUMARATE 300 MG TABLET PO SCH (20:30)
[2017-12-06] MEDS: ACETAMINOPHEN 325 MG TABLET PO PRN (22:48)
[2017-12-07 05:09] VITALS: BP 140/75
[2017-12-07] MEDS: LEVOTHYROXINE SODIUM 25 MCG TABLET PO SCH (05:19)
[2017-12-07 08:00] VITALS: BP 135/75
[2017-12-07] MEDS: CHOLECALCIFEROL (VIT D3) 1,000 UNITS TABLET PO SCH (09:48)
[2017-12-07] MEDS: QUEtiapine FUMARATE 200 MG TABLET PO SCH (09:48)
[2017-12-07] MEDS: DIVALPROEX SODIUM 250 MG DR TABLET PO SCH ×2 (09:48→20:08)
[2017-12-07] MEDS: PROPRANOLOL HCL 10 MG TABLET PO SCH ×2 (09:48→20:08)
[2017-12-07] MEDS: OLANZapine 10 MG TABLET PO SCH ×2 (09:49→20:08)
[2017-12-07] MEDS: SERTRALINE HCL 50 MG TABLET PO SCH (09:49)
[2017-12-07] MEDS: NICOTINE 21 MG/24 HOUR PATCH TD SCH (09:50)
[2017-12-07 11:22] VITALS: BP 132/87
[2017-12-07 15:09] VITALS: BP 150/76
[2017-12-07 19:33] VITALS: BP 134/83
[2017-12-07] MEDS: QUEtiapine FUMARATE 300 MG TABLET PO SCH (20:08)
[2017-12-08 00:30] VITALS: BP 130/78
[2017-12-08 05:43] VITALS: BP 123/73
[2017-12-08] MEDS: LEVOTHYROXINE SODIUM 25 MCG TABLET PO SCH (05:47)
[2017-12-08 08:04] VITALS: BP 104/61
[2017-12-08] MEDS: NICOTINE 21 MG/24 HOUR PATCH TD SCH (08:09)
[2017-12-08] MEDS: SERTRALINE HCL 50 MG TABLET PO SCH (08:10)
[2017-12-08] MEDS: QUEtiapine FUMARATE 200 MG TABLET PO SCH (08:10)
[2017-12-08] MEDS: CHOLECALCIFEROL (VIT D3) 1,000 UNITS TABLET PO SCH (08:10)
[2017-12-08] MEDS: PROPRANOLOL HCL 10 MG TABLET PO SCH ×2 (08:10→20:01)
[2017-12-08] MEDS: DIVALPROEX SODIUM 250 MG DR TABLET PO SCH ×2 (08:10→20:02)
[2017-12-08] MEDS: OLANZapine 10 MG TABLET PO SCH ×2 (08:10→20:01)
[2017-12-08 12:27] VITALS: BP 131/78
[2017-12-08 16:03] VITALS: BP 108/57
[2017-12-08 20:01] VITALS: BP 115/74
[2017-12-08] MEDS: QUEtiapine FUMARATE 300 MG TABLET PO SCH (20:01)
[2017-12-09 00:05] VITALS: BP 112/65
[2017-12-09 04:15] VITALS: BP 109/61
[2017-12-09 06:06] LABS: BASOPHILS % (AUTO) 0.4 % (0.0-2.0); EOSINOPHILS % (AUTO) 1.6 % (1.0-6.0); HEMATOCRIT 43.3 % (41-53); HEMOGLOBIN 14.3 g/dL (13.5-17.5); LYMPHOCYTES # (AUTO) 2.4 K/uL (1.0-4.8); LYMPHOCYTES % (AUTO) 47.7 % (22.0-44.0); MEAN CORPUSCULAR HEMOGLOBIN 28.7 pg (26.0-34.0); MEAN CORPUSCULAR HGB CONC 33.1 G/dL (31.0-37.0); MEAN CORPUSCULAR VOLUME 87 fL (80-100); MONOCYTES # (AUTO) 0.5 K/uL (0.1-1.0); MONOCYTES % (AUTO) 9.9 % (2.0-9.0); NEUTROPHILS # (AUTO) 2.1 K/uL (1.8-7.7); NEUTROPHILS % (AUTO) 40.4 % (40.0-70.0); PLATELET COUNT (AUTO) 209 K/uL (150-450); RED BLOOD CELL COUNT(AUTO) 4.98 MIL/uL (4.50-5.90); RED CELL DISTRIBUTION WIDTH 13.9 % (11.5-14.5)
[2017-12-09] MEDS: LEVOTHYROXINE SODIUM 25 MCG TABLET PO SCH (06:17)
[2017-12-09 06:35] LABS: ALANINE AMINOTRANSFERASE 17 U/L (12-78); ALKALINE PHOSPHATASE 56 U/L (46-116); ANION GAP 5 mmol/L (8-16); ASPARTATE AMINOTRANSFERASE 18 U/L (15-37); BILIRUBIN,TOTAL 0.2 mg/dL (0.1-1.0); CALCIUM, TOTAL 8.7 mg/dL (8.8-10.5); CARBON DIOXIDE 32 mmol/L (22-29); CHLORIDE 102 mmol/L (98-107); CREATININE 0.98 mg/dL (0.60-1.30); GLOMERULAR FILTR. RATE CALC > 60 mL/min (>60); GLUCOSE,RANDOM 139 mg/dL (70-110); POTASSIUM 3.9 mmol/L (3.5-5.1); SODIUM SERUM 139 mmol/L (136-145); TOTAL PROTEIN, SERUM 7.1 g/dL (6.4-8.2); UREA NITROGEN, BLOOD 18 mg/dL (7-18)
[2017-12-09 08:00] VITALS: BP 132/75
[2017-12-09] MEDS: CHOLECALCIFEROL (VIT D3) 1,000 UNITS TABLET PO SCH (08:09)
[2017-12-09] MEDS: NICOTINE 21 MG/24 HOUR PATCH TD SCH (08:10)
[2017-12-09] MEDS: PROPRANOLOL HCL 10 MG TABLET PO SCH ×2 (08:10→20:13)
[2017-12-09] MEDS: SERTRALINE HCL 50 MG TABLET PO SCH (08:10)
[2017-12-09] MEDS: DIVALPROEX SODIUM 250 MG DR TABLET PO SCH ×2 (08:10→20:12)
[2017-12-09] MEDS: OLANZapine 10 MG TABLET PO SCH ×2 (08:10→20:12)
[2017-12-09] MEDS: QUEtiapine FUMARATE 200 MG TABLET PO SCH (08:10)
[2017-12-09 12:21] VITALS: BP 123/73
[2017-12-09 15:40] VITALS: BP 125/75
[2017-12-09] MEDS: QUEtiapine FUMARATE 300 MG TABLET PO SCH (20:12)
[2017-12-09 20:18] VITALS: BP 129/89
[2017-12-10] MEDS: LEVOTHYROXINE SODIUM 25 MCG TABLET PO SCH (05:19)
[2017-12-10 05:24] VITALS: BP 122/64
[2017-12-10 11:00] VITALS: BP 134/73
[2017-12-10] MEDS: PROPRANOLOL HCL 10 MG TABLET PO SCH ×2 (12:34→20:11)
[2017-12-10] MEDS: SERTRALINE HCL 50 MG TABLET PO SCH (12:34)
[2017-12-10] MEDS: QUEtiapine FUMARATE 200 MG TABLET PO SCH (12:34)
[2017-12-10] MEDS: OLANZapine 10 MG TABLET PO SCH ×2 (12:34→20:11)
[2017-12-10] MEDS: DIVALPROEX SODIUM 250 MG DR TABLET PO SCH ×2 (12:34→20:12)
[2017-12-10] MEDS: CHOLECALCIFEROL (VIT D3) 1,000 UNITS TABLET PO SCH (12:34)
[2017-12-10] MEDS: NICOTINE 21 MG/24 HOUR PATCH TD SCH (12:35)
[2017-12-10] MEDS ORDERED: DIVA250T45 PO (16:59)
[2017-12-10] MEDS ORDERED: LEVO50 PO (17:00)
[2017-12-10] MEDS ORDERED: PROP10TA73 PO ×2 (19:12→19:23)
[2017-12-10 19:49] VITALS: BP 138/85
[2017-12-10] MEDS: QUEtiapine FUMARATE 300 MG TABLET PO SCH (20:11)
== END 2017-12-10 20:20 | disposition home or self-care (01) | DRG 53 ==
LOC: 6N 15:16
PROVIDERS: ADMIT Internal Medicine; ATTEND Internal Medicine
DX: G40.911 Epilepsy, unspecified, intractable, with status epilepticus (principal); E83.42 Hypomagnesemia; E55.9 Vitamin D deficiency, unspecified; F25.0 Schizoaffective disorder, bipolar type; F84.0 Autistic disorder; E03.9 Hypothyroidism, unspecified; F41.9 Anxiety disorder, unspecified; G47.00 Insomnia, unspecified; F17.200 Nicotine dependence, unspecified, uncomplicated; Z79.899 Other long term (current) drug therapy; Z71.6 Tobacco abuse counseling; Z56.0 Unemployment, unspecified; Z75.1 Person awaiting admission to adequate facility elsewhere
CPT/HCPCS: 83735; 84100